=== PATIENT | male | born 1960 ===

== ENCOUNTER → 2020-08-20 | Day surgery (SDC) | payer OTHER ==
[~2020-08-20] MED LIST: AMBIEN10 MG PO; BISOPROLOL-HCTZ1 TA1 PO; INTESTINEX1 CA1 PO; PANTOPRAZOLE SO20 MG PO; ULTRACET PO; ULTRAM50 MG PO
== END | disposition home or self-care (01) ==
LOC: ADM 08-19 08:15 → CIR.AMB 06:45
PROVIDERS: ATTEND Surgery
DX: I86.1 Scrotal varices (principal); Z30.2 Encounter for sterilization; Z20.822 Contact with and (suspected) exposure to COVID-19